=== PATIENT | male | born 1965 | race Caucasian/White ===

== ENCOUNTER 2018-08-30 06:53 | Inpatient (IN) | payer OTHER ==
[~2018-08-30] VITALS: Ht 185.4 cm; Wt 74.9 kg
[~2018-08-30 06:53] MED LIST: GLU5 PO; METFORMIN ER500 M1; METFORMIN HCL1000 MG PO; PRI20 PO; TRAMADOL HCL50 MG PO; TYLENOL EXTRA500 M2 PO; ZES10 PO; ZOC10 PO
--- NOTE | 2018-08-30 07:01 | NUR ---
EKG IN PROGRESS IN TRIAGE.
--- NOTE | 2018-08-30 07:07 | NUR ---
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 PT ON FULL CM, CALL LIGHT WITHIN REACH, IN POSITION OF COMFORT. AWAITING MSE.
--- NOTE | 2018-08-30 07:49 | NUR ---
US AT BEDSIDE.
[2018-08-30 07:56] LABS: CALCIUM 8.9 mg/dL (8.5-10.1); CARBON DIOXIDE 30.1 mmol/L (21-32); CHLORIDE SERUM 99 mmol/L (98-107); CREATININE SERUM 0.9 mg/dL (0.7-1.3); GFR1 > 60 mL/min; GLUCOSE SERUM 207 mg/dL (74-106); POTASSIUM SERUM 4.1 mmol/L (3.5-5.1); SODIUM SERUM 134 mmol/L (136-145)
[2018-08-30 08:01] LABS: ALBUMIN 3.7 g/dL (3.4-5.0); ALKALINE PHOSPHATASE 114 U/L (46-116); ALT/SGPT 34 U/L (16-63); AST/SGOT 14 U/L (15-37); BILIRUBIN TOTAL 0.4 mg/dL (0.20-1.00); LIPASE 304 IU/L (73-393); TOTAL PROTEIN, SERUM 7.4 g/dL (6.4-8.2)
[2018-08-30 08:53] LABS: BASOPHIL % 0.2 % (0-2); PLATELET COUNT 203 x10^3mcL (130-400); RED CELL DISTRIBUTION WIDTH 12.4 % (11.5-14.5)
--- NOTE | 2018-08-30 09:39 | NUR ---
PT RESTING ON ED GURNEY, RESPS E/U, NAD NOTED, ON FULL CM, CALL LIGHT WITHIN REACH.
[2018-08-30] MEDS ORDERED: METFORMIN HYDR500 M1 PO (09:40)
[2018-08-30] MEDS ORDERED: LISINOPRIL10 MG PO (09:41)
[2018-08-30] MEDS ORDERED: ULTRAM50 MG PO (09:41)
--- NOTE | 2018-08-30 10:34 | NUR ---
REPORT GIVEN TO KHUSHI LIN TO ASSUME CARE OF PT.
[2018-08-30 11:06] VITALS: BP 140/78
[2018-08-30 11:06] LABS: FREE T4 1.16 ng/dL (0.76-1.46); FREE THYROXINE INDEX 3.5 ug/dL (1.4-4.5); T4(THYROXINE) 9.8 ug/dL (4.7-13.3)
--- NOTE | 2018-08-30 11:23 | NUR ---
ASSUMED CARE OF PATIENT. PATIENT ARRIVED BY SOFIE FROM ED ACCOMPANIED WITH RN AND . PATIENT PLACED ON TELE MONITOR 24. ALERT AND ORIENTED X 4. NO COMPLAINTS OF PETERSEN. COMPLAINING OF MILD DIZZINESS. PULSES PALPABLE. NO TROUBLE SWALLOWING WITH GOOD APPETITE. NSR. COMPLAINING OF LEFT SIDE CHEST PAIN WITH PRESSURE 6/10, NONRADIATING. LUNG SOUNDS CLEAR BILATEARLLY, NO ADVENTITIOUS BREATH SOUNDS, ON ROOM AIR. BOWEL SOUNDS PRESENT IN ALL 4 QUADRANTS, ENDORSING LAST BM 08/29/18. VOIDING WITHOUT COMPLICATION. PEDAL PULSES PRESENT BILATERALLY, NO EDEMA NOTED. SKIN DRY, CLEAN, INTACT. IV ON RIGHT AC PATENT, NO REDNESS OR SWELLING. PATIENT ORIENTED TO ROOM AND SURROUNDINGS. CALL LIGHT PLACED ON BED, BED LOCKED AND AT LOWEST POSITION.
--- NOTE | 2018-08-30 11:45 | NUR ---
BS 173. 3 UNITS REGULAR INSULIN PROVIDED FOR COVERAGE.
--- NOTE | 2018-08-30 11:49 | NUR ---
PRN TYLENOL PROVIDED FOR 6/10 CHEST PAIN. PATIENT SEEN RESTING COMFORTABLY IN ROOM WITH . IV FLUIDS INITIATED, INFUSING WELL.
[2018-08-30 12:07] LABS: T3 TOTAL 1.02 ng/mL
[2018-08-30 12:13] LABS: PHOSPHOROUS 3.7 mg/dL (2.5-4.9)
[2018-08-30 12:14] LABS: MAGNESIUM 2.1 mg/dL (1.8-2.4)
[2018-08-30 12:15] LABS: CHOLESTEROL/HDL RATIO 2.4
--- NOTE | 2018-08-30 12:47 | NUR ---
PATIENT SEEN RESTING IN BED EATING LUNCH. ENDORSING 4/10 CP AFTER TYLENOL ADMINISTRATION. DOES NOT APPEAR TO BE IN ACUTE DISTRESS. RESPIRATIONS UNLABORED, NO SOB NOTED.
[2018-08-30 14:30] LABS: microscopic required? NO
[2018-08-30 14:46] LABS: urine erythrocyte NEGATIVE (NEGATIVE)
[2018-08-30 14:58] LABS: AMPHETAMINE QUAL UR NONE DETECTED (See below)
--- NOTE | 2018-08-30 15:02 | NUR ---
PATIENT AMBULATING TO RESTROOM INDEPENDENTLY. NO COMPLAINTS OF CHEST PAIN.
[2018-08-30 16:33] VITALS: BP 123/79
--- NOTE | 2018-08-30 16:35 | NUR ---
PATIENT COMPLAINING OF CONSTIPATION. DULCOLAX PRN PROVIDED.
--- NOTE | 2018-08-30 17:45 | NUR ---
BS 192. 3 UNITS REGULAR INSULIN COVERAGE PROVIDED. NO COMPLAINTS OF CHEST PAIN OR DISCOMFORT. NO APPARENT DISTRESS NOTED.
--- NOTE | 2018-08-30 19:24 | NUR ---
RECEIVED PT FROM DAY RN. LUIS FELIPE. BELARUSIAN SPEAKING. DENIES HEADACHE/DIZZINESS. TELE #24 SHOWING NSR, DENIES CP/CHEST PRESSURE. LUNG SOUNDS CTAB, NO SOB, BREATHING E/U ON RA. ABD SOFT/ROUND, BS ACTIVE X4 QUADS, DENIES N/V, DENIES ABD PAIN. PULSES PALPABLE, NO EDEMA NOTED. IV SITE CDI, IVF INFUSING WELL. CALL LIGHT WITHIN REACH. SAFETY MEASURES IN PLACE. WILL CONTINUE TO MONITOR. TOLD PT OF NPO STATUS AT MIDNIGHT FOR POSSIBLE PROCEDURE TOMORROW, PT VERBALIZED UNDERSTANDING.
[2018-08-30 20:00] VITALS: BP 120/76
--- NOTE | 2018-08-30 20:58 | NUR ---
PT C/O 02/08 NECK AND HEAD PAIN, MEDICATED PER EMAR.
--- NOTE | 2018-08-31 00:10 | NUR ---
PT RESTING IN BED WITH EYES CLOSED. BREATHING E/U. NO SIGNS OF PAIN NOTED. CALL LIGHT WITHIN REACH. WILL CONTINUE TO MONITOR.
[2018-08-31 04:24] VITALS: BP 127/79
--- NOTE | 2018-08-31 05:38 | NUR ---
PT C/O 4/10 BILATERAL FOOT PAIN, MEDICATED PER EMAR.
--- NOTE | 2018-08-31 06:22 | NUR ---
PT SITTING UP AT EDGE OF BED. C/O BILATERAL FEET DISCOMFORT FROM NEUROPATHY. DENIES PAIN. NO ACUTE CHANGES OVERNIGHT. ALL NEEDS MET AND ATTENDED TO. IV SITE CDI, IVF INFUSING WELL. CALL LIGHT WITHIN REACH. WILL ENDORSE CARE TO ONCOMING SHIFT NURSE.
--- NOTE | 2018-08-31 07:40 | NUR ---
RECEIVED PT IN NO ACUTE DISTRESS. AMBULATING AROUND ROOM. AAOX4. RESP EVEN AND UNLABORED ON RA. DENIES CP OR PRESSURE AT THIS TIME. IVF INFUSING, NO REDNESS OR SWELLING TO IV SITE. NPO FOR PROCEDURE. CALL LIGHT WITHIN REACH. WILL CONTINUE TO MONITOR.
[2018-08-31 10:29] VITALS: BP 132/80
--- NOTE | 2018-08-31 11:31 | NUR ---
PT RESTING IN BED. NO ACUTE DISTRESS. NO C/O CP OR PRESSURE AT THIS TIME. NPO FOR STRESS TEST. IVF INFUSING, NO REDNESS OR SWELLING NOTED. CALL LIGHT WITHIN REACH. WILL CONTINUE TO MONITOR.
--- NOTE | 2018-08-31 12:45 | NUR ---
PT WENT DOWN FOR STRESS TEST IN NO ACUTE DISTRESS.
[2018-08-31 12:59] VITALS: BP 130/79
--- NOTE | 2018-08-31 14:37 | NUR ---
PT BACK FROM STRESS TEST. NO ACUTE DISTRESS. DENIES CP OR PRESSURE. IV TO RAC WITH NO REDNESS OR SWELLING. FAMILY AT BEDSIDE. CALL LIGHT WITHIN REACH. WILL CONTINUE TO MONITOR.
[2018-08-31 18:30] VITALS: BP 145/80
--- NOTE | 2018-08-31 18:47 | NUR ---
PT POSITIVE FOR MRSA NARES. PLACED ON CONTACT ISOLATION. DR. MILLS NOTIFIED. WILL ENDORSE TO ONCOMING SHIFT.
--- NOTE | 2018-08-31 19:15 | NUR ---
AOX4. LITHUANIAN SPEAKING. TELE #24, SR. DENIES CP/DIZZINESS. LUNG CLEAR ON RA, NO SOB. ABD SOFT/ROUND, BS ACTIVE X4. VOIDS FREELY. PULSES PALPABLE, NO EDEMA. AMBULATORY. SKIN INTACT. DENIES PAIN. IV TO RAC, PATENT AND INFUSING. CONTACT PRECAUTIONS IN PLACE. BED IN LOWEST POSITION, 2 SIDE RAILS UP, CALL LIGHT WITHIN REACH. INSTRUCTED TO CALL FOR ASSISTANCE.
[2018-08-31 19:33] VITALS: BP 139/90
--- NOTE | 2018-08-31 22:01 | NUR ---
DR. MILLS NOTIFIED VIA [employer] TO SPEAK TO PT REGARDING + MRSA NARES.
--- NOTE | 2018-09-01 02:02 | NUR ---
RESTING IN BED WITH EYES CLOSED. NO ACUTE DISTRESS NOTED. BREATHING EVEN AND UNLABORED. WILL CONTINUE TO MONITOR.
[2018-09-01 05:19] VITALS: BP 121/69
--- NOTE | 2018-09-01 06:08 | NUR ---
NO ACUTE DISTRESS NOTED. NO ACUTE CHANGES. WILL ENDORSE TO ONCOMING RN.
[2018-09-01 06:15] LABS: CALCIUM 8.6 mg/dL (8.5-10.1); CARBON DIOXIDE 25.2 mmol/L (21-32); CHLORIDE SERUM 105 mmol/L (98-107); CREATININE SERUM 0.8 mg/dL (0.7-1.3); GFR1 > 60 mL/min; GLUCOSE SERUM 182 mg/dL (74-106); POTASSIUM SERUM 3.8 mmol/L (3.5-5.1); SODIUM SERUM 138 mmol/L (136-145)
[2018-09-01 06:23] LABS: BASOPHIL % 0.5 % (0-2); PLATELET COUNT 213 x10^3mcL (130-400); RED CELL DISTRIBUTION WIDTH 12.4 % (11.5-14.5)
[2018-09-01 07:28] VITALS: BP 132/78
[2018-09-01 08:36] VITALS: Ht 185.4 cm; Wt 74.9 kg
--- NOTE | 2018-09-01 08:43 | NUR ---
AT 0710 - RECEIVED PATIENT FROM NIGHT NURSE. AWAKE, ALERT AND ORIENTED. DENIES ANY PAIN. MONITOR SHOWING SINUS RHYHTM. NO ECTOPIES. RATE 80'S. IV INFUSING NS AT 100 ML/HR. ON CONTACT ISOLATION FOR MRSA NARES. AT 0740 - SITTING ON SIDE OF BED EATING BREAKFAST. AT 0815 - SEEN BY AMISH MATHUR. PATIENT FOR DISCHARGE HOME TODAY.
[2018-09-01] MEDS ORDERED: BACTROBAN21 (09:03)
--- NOTE | 2018-09-01 09:09 | NUR ---
RECEIVED DISCHARGE ORDERS. IV INFUSION DISCONITNUED.
--- NOTE | 2018-09-01 09:54 | NUR ---
PATIENT HAS BEEN GIVEN CHLORHEXIDINE BODY WASH.
[2018-09-01 09:55] VITALS: BP 132/78
--- NOTE | 2018-09-01 11:11 | NUR ---
PRINTED DISCHARGE INSTRUCTIONS GIVEN AND EXPLAINED TO CALLUM USING [employer] SENIOR NET ENGINEER # [id number]. PRESCRIPTION PROVIDED. IV CATHETER WAS REMOVED INTACT BY STUDENT NURSE. TAKEN OFF CARDIAC MONITORING. DISCHARGED HOME WITH . ESCORTED AMBULATORY TO DISCHARGE OFFICE.
== END 2018-09-01 11:13 | disposition home or self-care (01) | DRG 313 ==
LOC: ED 06:53 → DU 10:00
PROVIDERS: Emergency Medicine; ADMIT Internal Medicine
DX: R07.9 Chest pain, unspecified (principal); E87.1 Hypo-osmolality and hyponatremia; I10 Essential (primary) hypertension; E78.5 Hyperlipidemia, unspecified; E11.65 Type 2 diabetes mellitus with hyperglycemia; E78.00 Pure hypercholesterolemia, unspecified; E11.42 Type 2 diabetes mellitus with diabetic polyneuropathy; Z90.49 Acquired absence of other specified parts of digestive tract; Z83.3 Family history of diabetes mellitus; I25.2 Old myocardial infarction
CPT/HCPCS: 82962; 83880; 84439; A9500; J2785; J3490; J7030; Q0092

== ENCOUNTER 2019-08-07 11:21 | Emergency (ER) | payer OTHER ==
[~2019-08-07] VITALS: Ht 172.7 cm; Wt 75.3 kg
[~2019-08-07 11:21] MED LIST changes: +BACTROBAN21; +LISINOPRIL10 MG PO; +METFORMIN HYDR500 M1 PO; +ULTRAM50 MG PO
[2019-08-07 11:34] VITALS: Ht 172.7 cm; Wt 75.3 kg
[2019-08-07 12:08] VITALS: BP 134/75
== END 2019-08-07 12:08 | disposition home or self-care (01) ==
LOC: ED 11:21
DX: T78.1XXA Other adverse food reactions, not elsewhere classified, initial encounter (principal); E11.40 Type 2 diabetes mellitus with diabetic neuropathy, unspecified; I10 Essential (primary) hypertension; Z90.89 Acquired absence of other organs; Z98.890 Other specified postprocedural states; X58.XXXA Exposure to other specified factors, initial encounter